=== PATIENT | male | born 1980 | race Caucasian/White ===

== ENCOUNTER 2016-11-02 23:50 | Emergency (ER) | payer SELFPAY ==
[~2016-11-02] VITALS: Ht 177.8 cm; Wt 74.8 kg
[2016-11-02 23:55] VITALS: BP 125/76
--- NOTE | 2016-11-03 00:04 | NUR ---
Patient ambulated to bed 07.
--- NOTE | 2016-11-03 00:06 | NUR ---
Dr. Pringle evaluating patient at bedside.
--- NOTE | 2016-11-03 00:09 | NUR ---
PT IS 36Y/M C/O PAIN, AND BLISTERS ON HIS BOTH FEET, FOR 1 WEEK, NO TRAUMA NOR INJURY NOTED
[2016-11-03 00:19] VITALS: BP 119/72
--- NOTE | 2016-11-03 00:20 | NUR ---
Patient discharged with v/s stable. Written and verbal after care instructions given and explained. Patient alert, oriented and verbalized understanding of instructions. Ambulatory with steady gait. All questions addressed prior to discharge. ID band removed. Patient advised to follow up with PMD. Rx of LOTRIMIN ULTRA 1% FOR ATHLETE'S FOOT, LOTRIMIN AF 2% POWDER, KEFLEX 500MG PO, TRAMADOL HYDROCHLORIDE 50MG PO given. Patient educated on indication of medication including possible reaction and side effects. Opportunity to ask questions provided and answered.
== END 2016-11-03 00:20 | disposition home or self-care (01) ==
LOC: MED 23:50
DX: B35.3 Tinea pedis (principal); L03.116 Cellulitis of left lower limb; L03.115 Cellulitis of right lower limb